=== PATIENT | male | born 1970 | race Caucasian/White ===

== ENCOUNTER 2016-11-30 15:31 | Emergency (ER) | payer OTHER ==
--- NOTE | 2016-11-30 17:28 | UC ---
Minor Trauma HPI - HPI Summary HPI Summary: Pt states he fell 10 feet from his roof at 9am today while trying to shovel snow off the roof. States he fell off such that his right elbow hit the daugherty of his brother's car (left a dent) and then landed on both feet, then twisted and fell backwards and landed on his buttocks in the snow. Denies head injury. No LOC. Denies neck pain, back pain and right elbow pain. Only complaint is left ankle pain, which only hurts if he twists it or walks and twists it. States he walked into the house after the fall on his own, and laid on the couch for a while after it happened and then came in for care when he noted the swelling of his left lateral malleolus. No vomiting. No abd pain, chest pain or SOB. Did not take any meds for pain. Has chronic back pain, but no meds currently, was on what sounds like a non steroidal prescription medication which helped, but pt states he hasn't needed it for 3 weeks. 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 He declines pain medication at this time. - History of Current Complaint Chief Complaint: UCLowerExtremity Stated Complaint: LEFT ANKLE INJURY Time Seen by Provider: 11/30/16 16:34 Hx Obtained From: Patient Onset/Duration: Sudden Onset, Lasting Hours, Still Present Onset Of Pain: Post Accident Severity Initially: Moderate Severity Currently: Moderate Pain Intensity: 7 Pain Scale Used: 0-10 Numeric Mechanism Of Injury: Fall From Height Of: - 10 feet Aggravating Factor(s): Other: - twisting Alleviating Factor(s): Nothing Associated Signs And Symptoms: Positive: Swelling - lat malleolus. 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 Alcohol Use: None Substance Use Type: None Smoking Status (MU): Heavy Every Day Tobacco Smoker Type: Cigarettes Amount Used/How Often: 1 PPD FOR 28 YRS Length of Time of Smoking/Using Tobacco: 28 YRS Have You Smoked in the Last Year: Yes Household Exposure Type: Cigarettes Review of Systems Constitutional: Negative Skin: Negative Eyes: Negative Respiratory: Negative Cardiovascular: Negative Gastrointestinal: Negative Motor: Negative Neurovascular: Negative Musculoskeletal: Other: - swelling left lat malleolus Neurological: Negative Psychological: Negative All Other Systems Reviewed And Are Negative: Yes Physical Exam Triage Information Reviewed: Yes Appearance: Well-Appearing, Well-Nourished, Pain Distress Vital Signs: Initial Vital Signs Temp 98.0 F 11/30/16 16:23 Pulse 69 11/30/16 16:23 Resp 16 11/30/16 16:23 BP 130/69 11/30/16 16:23 Pulse Ox 99 11/30/16 16:23 Vital Signs Reviewed: Yes Eyes: Positive: Conjunctiva Clear ENT: Positive: Hearing grossly normal, Pharynx normal, TMs normal, Other: - No Olivo's sign. Negative: Muffled/hoarse voice Dental Exam: Normal Neck: Positive: Supple, Nontender, No Lymphadenopathy Respiratory: Positive: Chest non-tender, Lungs clear, Normal breath sounds, No respiratory distress Cardiovascular: Positive: RRR, No Murmur, Pulses Normal, Brisk Capillary Refill Abdomen Description: Positive: Nontender, No Organomegaly, Soft. Negative: CVA Tenderness (R), CVA Tenderness (L), Distended, Guarding, Hernia @, Hepatomegaly , McBurney's Point Tenderness, Peritoneal Signs, Pulsatile Mass, Splenomegaly Bowel Sounds: Positive: Present Musculoskeletal: Positive: Strength Intact, ROM Intact, Other: - right elbow with no bony tenderness, deformity or ecchymosis or swelling. Left ankle with swelling lat malleolus. tender lat malleolus. Pulses, sensation intact. No prox tib fib tenderness bilat. Achilles tendons intact bilat by Nova test done with pt in kneeling position. No tenderness of Achilles by palpation. No spinal tenderness. Neurological: Positive: Alert, Muscle Tone Normal, Other: - CN 2-12 intact. Motor 5/5 Sensation intact. reflexes 2+, normal gait Psychological Exam: Normal Skin Exam: Normal Re-Evaluation - Re-Evaluation First Eval Re-Evaluation Time: 18:10 - back from xray, no change in condition, still declines pain med Change: Unchanged Second Eval Re-Evaluation Time: 19:00 Change: Unchanged - discussed xray finding with and pt, including back xray , and advised to go to ER if worse, and to have definite f/u with Dr. Woodruff on 12/02/16 Minor Trauma Course/Dx - Course Course Of Treatment: Pt meets trauma criteria. Discussed with pt. States he does not want to go to ED. Based on exam, ankle is not painful unless twisted, so do not feel pt has a distracting painful injury. Pt has no cervical, thoracic or lumbar spinal tenderness, no signs of head trauma or hx or exam findings of concussion. Will check lumbar spine film and heel film based on the trauma criteria, in addition to the ankle xray. Will no xray his right elbow as it has full ROM, no sign of trauma and no bony tenderness. Xray reports show no fxs. Ls spine, left heel and left ankle. Ls spine shows Grade 1 spondylolisthesis of L5 on S1 with likely spondylolysis of L5. Pt and voice understanding of trauma criteria and will go to the ER if any new or worsening symptoms. - Differential Dx/Diagnosis Differential Diagnosis/HQI/PQRI: Contusion(s), Fracture, Sprain, Strain Provider Diagnoses: fall from height of ten feet with left ankle sprain. spondylolisthesis of L5 on S1 with likely spondylolysis of L5. Discharge - Discharge Plan Condition: Stable Disposition: HOME Patient Education Materials: Ankle Sprain (ED), Crutch Instructions (ED) Referrals: Rodney Woodruff MD [Medical Doctor] - (definite 12/02/16 ) Non Staff,Doctor [Primary Care Provider] -
[2016-11-30 18:25] VITALS: BP 110/73
--- NOTE | 2016-11-30 18:26 | RAD ---
Indication: Fall. Lateral malleolus swelling. 3 views of the ankle demonstrates no fracture. Soft tissue swelling is noted laterally. IMPRESSION: Soft tissue swelling without fracture.
--- NOTE | 2016-11-30 18:27 | RAD ---
Indication: Fall with left heel swelling. 4 views of the left calcaneus demonstrates no fracture. No other bone or joint abnormality is noted. IMPRESSION: No fracture of the calcaneus is noted.
--- NOTE | 2016-11-30 18:30 | RAD ---
Indication: Back pain. Fall, back injury. 5 views of the lumbar spine reviewed. There is grade 1 spondylolisthesis of L5 on S1 with bilateral facet defects likely due to spondylolysis age of which is undetermined. No compression fracture is noted. Disc spaces all well-preserved. Intervertebral foramen appear patent. IMPRESSION: Grade 1 spondylolisthesis of L5 on S1 with likely spondylolysis of L5. No compression fracture is noted.
== END 2016-11-30 19:08 | disposition home or self-care (01) ==
LOC: UCCORT 15:31
DX: S93.402A Sprain of unspecified ligament of left ankle, initial encounter (principal); W13.2XXA Fall from, out of or through roof, initial encounter; Y93.H1 Activity, digging, shoveling and raking; Y92.008 Other place in unspecified non-institutional (private) residence as the place of occurrence of the external cause; M43.16 Spondylolisthesis, lumbar region; F17.210 Nicotine dependence, cigarettes, uncomplicated
CPT/HCPCS: 72110; 99213; G0463

== ENCOUNTER 2016-12-26 16:49 | Emergency (ER) | payer OTHER ==
[2016-12-26 18:26] VITALS: BP 117/70
--- NOTE | 2016-12-26 18:54 | UC ---
Throat Pain/Nasal Reji HPI - HPI Summary HPI Summary: PRODUCTIVE COUGH AND SINUS PRESSURE FOR FIVE DAYS. WORSE SINCE LAST NIGHT - History of Current Complaint Chief Complaint: UCGeneralIllness Stated Complaint: COUGH Time Seen by Provider: 12/26/16 18:35 Hx Obtained From: Patient Onset/Duration: Gradual Onset, Lasting Days, Still Present, Worse Since - LAST NIGHT Severity: Moderate Cough: Productive Associated Signs & Symptoms: Positive: Hoarseness, Sinus Discomfort, Nasal Discharge - Epiglottits Risk Factors Epiglottis Risk Factors: Negative - Allergies/Home Medications Allergies/Adverse Reactions: Allergies Allergy/AdvReac Type Severity Reaction Status Date / Time No Known Allergies Allergy Verified 12/26/16 18:26 PMH/Surg Hx/FS Hx/Imm Hx Previously Healthy: Yes Cardiovascular History Of: Reports: Cardiac Disorders - heart murmur resolved, CP - Surgical History Surgical History: Yes Surgery Procedure, Year, and Place: 20 YRS AGO CHEST TUBE FOR RIGHT LUNG REINFLATION-[facility] - Family History Known Family History: Positive: Cardiac Disease - Social History Occupation: Employed Full-time Lives: With Family Alcohol Use: None Substance Use Type: None Smoking Status (MU): Heavy Every Day Tobacco Smoker Type: Cigarettes Amount Used/How Often: 1 PPD FOR 28 YRS Length of Time of Smoking/Using Tobacco: 28 YRS Have You Smoked in the Last Year: Yes Household Exposure Type: Cigarettes Cessation Counseling: Counseled 3+Min - 10 Min Review of Systems Constitutional: Chills, Fatigue Skin: Negative Eyes: Negative ENT: Nasal Discharge Respiratory: Cough Cardiovascular: Negative Gastrointestinal: Negative Genitourinary: Negative Motor: Negative Neurovascular: Negative Musculoskeletal: Negative Neurological: Negative Psychological: Negative All Other Systems Reviewed And Are Negative: Yes Physical Exam Triage Information Reviewed: Yes Appearance: No Pain Distress, Well-Nourished, Ill-Appearing - MILD Vital Signs: Initial Vital Signs Temp 99.5 F 12/26/16 18:21 Pulse 71 12/26/16 18:21 Resp 16 12/26/16 18:21 BP 117/70 12/26/16 18:21 Pulse Ox 98 12/26/16 18:21 Vital Signs Reviewed: Yes Eye Exam: Normal ENT: Positive: Hearing grossly normal, Pharynx normal, Nasal congestion, TM bulging, TM dull Dental Exam: Normal Neck exam: Normal Neck: Positive: Supple, Nontender, No Lymphadenopathy Respiratory Exam: Normal Respiratory: Positive: Chest non-tender, Lungs clear, Normal breath sounds, No respiratory distress, No accessory muscle use Cardiovascular Exam: Normal Cardiovascular: Positive: RRR, No Murmur, Pulses Normal Abdominal Exam: Normal Abdomen Description: Positive: Nontender, No Organomegaly Musculoskeletal Exam: Normal Musculoskeletal: Positive: Strength Intact Neurological Exam: Normal Psychological Exam: Normal Psychological: Positive: Normal Response To Family Skin Exam: Normal Throat Pain/Nasal Course/Dx - Differential Dx/Diagnosis Differential Diagnosis/HQI/PQRI: Pharyngitis, Sinusitis, URI Provider Diagnoses: SINUSITIS. BRONCHITIS Discharge - Discharge Plan Condition: Stable Disposition: HOME Prescriptions: Benzonatate CAP* [Tessalon 100 MG CAP*] 100 mg PO TID PRN #15 cap PRN Reason: Cough DOXYcycline CAP(*) [DOXYcycline 100MG CAP(*)] 100 mg PO BID #20 cap Patient Education Materials: How to Stop Smoking (ED), Sinusitis (ED), Acute Bronchitis (ED) [place] [facility] [facility] [place] [facility] [place]] Non Staff,Doctor [Primary Care Provider] -
== END 2016-12-26 18:54 | disposition home or self-care (01) ==
LOC: UCCORT 16:49
DX: J32.9 Chronic sinusitis, unspecified (principal); J40 Bronchitis, not specified as acute or chronic; F17.210 Nicotine dependence, cigarettes, uncomplicated; Z71.6 Tobacco abuse counseling
CPT/HCPCS: 99212; G0463

== ENCOUNTER 2017-08-18 08:00 | Emergency (ER) | payer OTHER ==
[2017-08-18 08:14] VITALS: BP 127/78
--- NOTE | 2017-08-18 08:25 | UC ---
Shoulder Pain HPI - HPI Summary HPI Summary: 1. RIGHT SHOULDER PAIN X 2 WEEKS ? INJURY HE WAS HELPING A FRIEND RODDY , PAIN IS AT RIGHT TRAPEZES AND RADIATES TO HIS RIGHT BICEP NO WEAKNESS 2. RIGHT HEAR DISCOMFORT, FEELS PLUGGED FOR THE PAST 3 WEEKS, NO EAR PAIN , WENT SWIMMING 3 WEEKS AGO - History of Current Complaint Chief Complaint: UCUpperExtremity Stated Complaint: RIGHT SHOULDER/ELBOW INJURY Time Seen by Provider: 08/18/17 08:16 Hx Obtained From: Patient Onset/Duration: Gradual Onset, Lasting Weeks - 2, Still Present Timing: Constant Severity Initially: Moderate Severity Currently: Moderate Location Of Pain: Is Discrete @ - RIGHT SHOULDER Character: Aching Aggravating Factor(s): Movement, Lifting, Flexion Alleviating Factor(s): Nothing Associated Signs And Symptoms: Positive: Numbness/Tingling - RIGHT ARM. Negative: Swelling, Redness, Fever, Weakness - Allergies/Home Medications Allergies/Adverse Reactions: Allergies Allergy/AdvReac Type Severity Reaction Status Date / Time No Known Allergies Allergy Verified 08/18/17 08:08 Home Medications: Home Medications Acetaminophen [Tylenol] 650 mg PO ONCE PRN 08/18/17 [History Confirmed 08/18/17] PMH/Surg Hx/FS Hx/Imm Hx Previously Healthy: Yes - Surgical History Surgical History: Yes Surgery Procedure, Year, and Place: 25 YRS AGO CHEST TUBE FOR RIGHT LUNG REINFLATION[place] – [place] - Family History Known Family History: Positive: Cardiac Disease - Social History Alcohol Use: None Substance Use Type: None Smoking Status (MU): Heavy Every Day Tobacco Smoker Type: Cigarettes Amount Used/How Often: 1 PPD FOR 28 YRS Length of Time of Smoking/Using Tobacco: 28 YRS Have You Smoked in the Last Year: Yes Household Exposure Type: Cigarettes Review of Systems Constitutional: Negative Skin: Negative Eyes: Negative ENT: Negative Respiratory: Negative Cardiovascular: Negative Gastrointestinal: Negative Is Patient Immunocompromised?: No All Other Systems Reviewed And Are Negative: Yes Physical Exam Triage Information Reviewed: Yes Appearance: Well-Appearing, No Pain Distress, Well-Nourished Vital Signs: Initial Vital Signs Temp 98 F 08/18/17 08:09 Pulse 64 08/18/17 08:09 Resp 20 08/18/17 08:09 BP 127/78 08/18/17 08:09 Eye Exam: Normal Eyes: Positive: Conjunctiva Clear ENT: Positive: Other - BILATERAL CERUMEN IMPACTION RIGHT MORE THAN LEFT Neck exam: Normal Neck: Positive: Supple, Nontender, No Lymphadenopathy Respiratory: Positive: Chest non-tender, Lungs clear, Normal breath sounds, No respiratory distress Cardiovascular: Positive: RRR, No Murmur, Pulses Normal Musculoskeletal: Positive: Other: - RIGHT SHOULDER : NO SWELLING , NO ERYTHEMA, NO TENDERNESS, GOOD ROM ON FLEXION AND EXTENION , NORMAL STRENGTH Shoulder Course/Dx - Differential Dx/Diagnosis Provider Diagnoses: THORACIC OUTLET SYNDROME LEFT SHOULDER. CERUMEN IMPACTION Discharge - Discharge Plan Condition: Stable Disposition: HOME Patient Education Materials: Cerumen Impaction (ED), Thoracic Outlet Syndrome ( ED) Referrals: Non Staff,Doctor [Primary Care Provider] - 2 Weeks
== END 2017-08-18 09:01 | disposition home or self-care (01) ==
LOC: UCCORT 08:00
DX: G54.0 Brachial plexus disorders (principal); H61.23 Impacted cerumen, bilateral; F17.210 Nicotine dependence, cigarettes, uncomplicated
CPT/HCPCS: 99213; G0463

== ENCOUNTER 2017-11-05 09:02 | Emergency (ER) | payer OTHER ==
[2017-11-05 10:32] VITALS: BP 127/71
--- NOTE | 2017-11-05 11:01 | UC ---
FLU HPI - HPI Summary HPI Summary: 5 days of cough, chills and influenzalike illness. he smokes. he denies hemoptysis and cough is dry. - History of Current Complaint Chief Complaint: UCGeneralIllness Stated Complaint: COUGH/GARDNER/FATIGUE Time Seen by Provider: 11/05/17 10:48 Hx Obtained From: Patient Onset/Duration: Gradual Onset, Lasting Days, Still Present Severity Currently: Moderate Severity Initially: Moderate Pain Intensity: 2 Associated Signs & Symptoms: Positive: Cough, Nasal Congestion - Allergy/Home Medications Allergies/Adverse Reactions: Allergies Allergy/AdvReac Type Severity Reaction Status Date / Time No Known Allergies Allergy Verified 11/05/17 10:29 PMH/Surg Hx/FS Hx/Imm Hx Previously Healthy: No - smoker. - Surgical History Surgical History: Yes Surgery Procedure, Year, and Place: 25 YRS AGO CHEST TUBE [place]G [place] [place] - Family History Known Family History: Positive: Cardiac Disease - Social History Occupation: Employed Full-time Lives: With Family Alcohol Use: None Substance Use Type: None Smoking Status (MU): Heavy Every Day Tobacco Smoker Type: Cigarettes Amount Used/How Often: 1 PPD FOR 28 YRS Length of Time of Smoking/Using Tobacco: 28 YRS Have You Smoked in the Last Year: Yes Household Exposure Type: Cigarettes Review of Systems Constitutional: Chills Respiratory: Cough All Other Systems Reviewed And Are Negative: Yes Physical Exam Triage Information Reviewed: Yes Appearance: Well-Appearing, No Pain Distress, Well-Nourished Vital Signs: Initial Vital Signs Temp 99.5 F 11/05/17 10:25 Pulse 78 11/05/17 10:25 Resp 18 11/05/17 10:25 BP 127/71 11/05/17 10:25 Pulse Ox 98 11/05/17 10:25 Vital Signs Reviewed: Yes Eye Exam: Normal Eyes: Positive: Conjunctiva Clear ENT: Positive: Pharynx normal, Nasal congestion, TMs normal, Uvula midline. Negative: TM bulging, TM dull, TM red, Tonsillar swelling, Tonsillar exudate, Trismus, Muffled voice, Sinus tenderness Neck: Positive: Supple, Nontender. Negative: No Lymphadenopathy Respiratory: Positive: Lungs clear, Normal breath sounds, No respiratory distress, No accessory muscle use. Negative: Respiratory distress, Decreased breath sounds, Accessory muscle use, Crackles, Rhonchi, Stridor, Wheezing Cardiovascular: Positive: No Murmur, Pulses Normal, Brisk Capillary Refill Abdomen Description: Positive: No Organomegaly, Soft. Negative: Distended, Guarding Musculoskeletal: Positive: Strength Intact, ROM Intact. Negative: No Edema Neurological: Positive: Alert, Muscle Tone Normal. Negative: Fatigued Psychological: Positive: Age Appropriate Behavior Skin: Negative: rashes Flu Course/Dx - Course Course Of Treatment: No clinical signs of pnuemonia. Cough is dry and hacking. Ella su and tuyet banuelos. - Differential Dx/Diagnosis Provider Diagnoses: influenza. Discharge - Discharge Plan Condition: Good Disposition: HOME Prescriptions: Benzonatate CAP* [Tessalon 100 MG CAP*] 100 mg PO TID #21 cap Patient Education Materials: Influenza (ED) Referrals: Non Staff,Doctor [Primary Care Provider] -
== END 2017-11-05 11:09 | disposition home or self-care (01) ==
LOC: UCCORT 09:02
DX: J11.1 Influenza due to unidentified influenza virus with other respiratory manifestations (principal); F17.210 Nicotine dependence, cigarettes, uncomplicated
CPT/HCPCS: 87502; 99212; G0463

== ENCOUNTER 2018-01-17 08:21 | Emergency (ER) | payer OTHER ==
[2018-01-17 08:33] VITALS: BP 129/79
--- NOTE | 2018-01-17 08:43 | UC ---
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 Sleeping is very difficult. " sx started 3 days ago. pain is in mid low back with radiation slightly b/l. hurts when he twists, he was twisting a lifting a lot on day of injury. no radiation down legs. denies b/b incontinence. no saddle anesthesia. - History of Current Complaint Chief Complaint: UCBackPain Stated Complaint: BACK INJURY Time Seen by Provider: 01/17/18 08:30 Pain Intensity: 4 - Allergies/Home Medications Allergies/Adverse Reactions: Allergies Allergy/AdvReac Type Severity Reaction Status Date / Time No Known Allergies Allergy Verified 01/17/18 08:34 PMH/Surg Hx/FS Hx/Imm Hx Previously Healthy: Yes - Surgical History Surgical History: Yes Surgery Procedure, Year, and Place: 25 YRS AGO CHEST TUBE FOR RIGHT LUNG REINFLATION-[facility] - Family History Known Family History: Positive: Cardiac Disease - Social History Alcohol Use: None Substance Use Type: None Smoking Status (MU): Heavy Every Day Tobacco Smoker Type: Cigarettes Amount Used/How Often: 1 PPD FOR 28 YRS Length of Time of Smoking/Using Tobacco: 28 YRS Have You Smoked in the Last Year: Yes Household Exposure Type: Cigarettes Review of Systems Constitutional: Negative Skin: Negative Eyes: Negative ENT: Negative Respiratory: Negative Cardiovascular: Negative Gastrointestinal: Negative Genitourinary: Negative Motor: Decreased ROM Neurovascular: Negative Musculoskeletal: Negative Neurological: Negative Psychological: Negative Is Patient Immunocompromised?: No All Other Systems Reviewed And Are Negative: Yes Physical Exam Triage Information Reviewed: Yes Appearance: Well-Appearing - very pleasant, No Pain Distress, Well-Nourished - ambulates through hallway without any distress Vital Signs: Initial Vital Signs Temp 98.4 F 01/17/18 08:28 Pulse 75 01/17/18 08:28 Resp 18 01/17/18 08:28 BP 129/79 01/17/18 08:28 Pulse Ox 97 01/17/18 08:28 Vital Signs Reviewed: Yes Eye Exam: Normal ENT Exam: Normal Neck exam: Normal Cardiovascular: Positive: RRR, No Murmur Abdomen Description: Positive: Nontender, Soft Musculoskeletal Exam: Normal Musculoskeletal: Positive: Strength Intact, ROM Intact, Other: - L/s spine - NT , FROm w/ flexion and extension. mild pain w/ b/l rotation, but still FROM. Neg SLR b/l. + 2 patellar and achilles b/l. + b/l low paraspinal muscle spams that reporduce tenderness on palpation. Neurological Exam: Normal Psychological Exam: Normal Skin Exam: Normal Back Pain Course/Dx - Course Course Of Treatment: low back muscle strain. unlikely to have sciatica as there is no radiation or red flag sx. -no indication for imaging at this time w/o radiation or trauma sx w/ 3 days of sx. - Differential Dx/Diagnosis Differential Diagnosis/HQI/PQRI: Cauda Equina Syndrome, Compressive Cord Syndrome, Strain, Sprain Provider Diagnoses: Low back muscle strain Discharge - Sign-Out/Discharge Documenting (check all that apply): Discharge/Admit/Transfer - Discharge Plan Condition: Stable Disposition: HOME Prescriptions: Cyclobenzaprine (NF) [Cyclobenzaprine 5 MG (NF)] 5 mg PO DAILY PRN #7 tab PRN Reason: Pain Ibuprofen [Ibu] 800 mg PO TID PRN #21 tablet PRN Reason: Pain Patient Education Materials: Low Back Strain (ED), Lower Back Exercises (ED) Referrals: No Primary Care Phys,NOPCP [Primary Care Provider] - [facility] [Provider Group] Additional Instructions: -Continue using the ice and try to rest it and avoid twisting -You should be seen in 7-10 days with PCP if not better, list has been added above -Do not use the cyclobenzaprine if you will be driving or operating machinery within 8-10 hrs. -Do not take more than the recommended amount of any medicine, especially aleve as it can be damaging to your kidneys regardless of your body weight. - Billing Disposition and Condition Condition: STABLE Disposition: HOME
== END 2018-01-17 08:55 | disposition home or self-care (01) ==
LOC: UCCORT 08:21
DX: S39.012A Strain of muscle, fascia and tendon of lower back, initial encounter (principal); X50.0XXA Overexertion from strenuous movement or load, initial encounter; Y93.89 Activity, other specified; Y92.9 Unspecified place or not applicable; F17.210 Nicotine dependence, cigarettes, uncomplicated
CPT/HCPCS: 99212; G0463

== ENCOUNTER 2018-09-08 13:59 | Emergency (ER) | payer OTHER ==
[2018-09-08 14:24] VITALS: BP 112/74
--- NOTE | 2018-09-08 14:41 | UC ---
Throat Pain/Nasal Reji HPI - HPI Summary HPI Summary: sore throat x 1 day + fever, chills, cough body aches, - History of Current Complaint Chief Complaint: UCRespiratory Stated Complaint: RUNNY NOSE,SORE THROAT,HEADACHE,ACHY Time Seen by Provider: 09/08/18 14:09 Hx Obtained From: Patient Onset/Duration: Gradual Onset, Lasting Days - 1, Still Present Severity: Moderate Pain Intensity: 3 Cough: Nonproductive Associated Signs & Symptoms: Positive: Fever. Negative: Hoarseness, Sinus Discomfort, Nasal Discharge, Rash - Allergies/Home Medications Allergies/Adverse Reactions: Allergies Allergy/AdvReac Type Severity Reaction Status Date / Time No Known Allergies Allergy Verified 09/08/18 14:20 PMH/Surg Hx/FS Hx/Imm Hx Previously Healthy: Yes - Surgical History Surgical History: Yes Surgery Procedure, Year, and Place: 25 YRS AGO CHEST TUBE FOR RIGHT LUNG REINFLATION[place] – [place] - Family History Known Family History: Positive: Cardiac Disease - Social History Alcohol Use: None Substance Use Type: None Smoking Status (MU): Heavy Every Day Tobacco Smoker Type: Cigarettes Amount Used/How Often: 1 PPD FOR 28 YRS Length of Time of Smoking/Using Tobacco: 28 YRS Have You Smoked in the Last Year: Yes Household Exposure Type: Cigarettes Review of Systems All Other Systems Reviewed And Are Negative: Yes Constitutional: Positive: Fever, Chills, Fatigue Skin: Positive: Negative Eyes: Positive: Negative ENT: Positive: Sore Throat, Nasal Discharge Respiratory: Positive: Cough Cardiovascular: Positive: Negative Gastrointestinal: Positive: Negative Is Patient Immunocompromised?: No Physical Exam Triage Information Reviewed: Yes Appearance: Well-Appearing, No Pain Distress, Well-Nourished Vital Signs: Initial Vital Signs Temp 101.4 F 09/08/18 14:21 Pulse 102 09/08/18 14:21 Resp 17 09/08/18 14:21 BP 112/74 09/08/18 14:21 Pulse Ox 100 09/08/18 14:21 Vital Signs Reviewed: Yes Eye Exam: Normal Eyes: Positive: Conjunctiva Clear ENT: Positive: Normal ENT inspection, Hearing grossly normal, Nasal congestion, TMs normal. Negative: Pharynx normal, Pharyngeal erythema, TM bulging, TM dull , TM red, Tonsillar swelling, Tonsillar exudate Neck: Positive: Supple, Nontender, No Lymphadenopathy Respiratory: Positive: Chest non-tender, Lungs clear, Normal breath sounds, No respiratory distress Cardiovascular: Positive: Tachycardia Skin Exam: Normal Throat Pain/Nasal Course/Dx - Differential Dx/Diagnosis Provider Diagnosis: Influenza Discharge - Sign-Out/Discharge Documenting (check all that apply): Patient Departure All imaging exams completed and their final reports reviewed: No Studies - Discharge Plan Condition: Stable Disposition: HOME Prescriptions: Oseltamivir CAP* [Tamiflu CAP*] 75 mg PO BID #10 cap Patient Education Materials: Influenza (DC) Referrals: No Primary Care Phys,NOPCP [Primary Care Provider] - If Needed - Billing Disposition and Condition Condition: STABLE Disposition: Home
[2018-09-08] MEDS ORDERED: Oseltamivir CAP* 75 MG CAP PO ONE (14:53)
== END 2018-09-08 15:02 | disposition home or self-care (01) ==
LOC: UCCORT 13:59
DX: J09.X2 Influenza due to identified novel influenza A virus with other respiratory manifestations (principal); F17.210 Nicotine dependence, cigarettes, uncomplicated
CPT/HCPCS: 99212; A9270-GY; G0463

== ENCOUNTER 2018-12-26 18:41 | Emergency (ER) | payer OTHER ==
[2018-12-26 19:08] VITALS: BP 125/79
--- NOTE | 2018-12-26 19:16 | UC ---
Lower Extremity/Ankle HPI - HPI Summary HPI Summary: Stubbed pinky toe, right foot, earlier this week. Pain with walking. Progressive redness and swelling the last several days. - History of Current Complaint Chief Complaint: UCLowerExtremity Stated Complaint: RT PINKY TOE INJ Hx Obtained From: Patient Onset/Duration: Sudden Onset, Lasting Days - 5, Worse Since - last 2 days Severity Initially: Moderate Severity Currently: Mild Pain Intensity: 3 Aggravating Factor(s): Standing, Ambulation Alleviating Factor(s): Rest Able to Bear Weight: Yes - Allergies/Home Medications Allergies/Adverse Reactions: Allergies Allergy/AdvReac Type Severity Reaction Status Date / Time No Known Allergies Allergy Verified 12/26/18 19:05 PMH/Surg Hx/FS Hx/Imm Hx Previously Healthy: Yes Other Respiratory History: Pneumothorax - Surgical History Surgical History: Yes Surgery Procedure, Year, and Place: 25 YRS AGO CHEST TUBE FOR RIGHT LUNG REINFLATION-[facility]. gallbladder - Family History Known Family History: Positive: Cardiac Disease - Social History Occupation: Employed Full-time Lives: With Family Alcohol Use: None Substance Use Type: None Smoking Status (MU): Heavy Every Day Tobacco Smoker Type: Cigarettes Amount Used/How Often: 1 PPD FOR 28 YRS Length of Time of Smoking/Using Tobacco: 28 YRS Have You Smoked in the Last Year: Yes Household Exposure Type: Cigarettes Review of Systems All Other Systems Reviewed And Are Negative: Yes Skin: Positive: Bruising - right 5th toe Musculoskeletal: Positive: Arthralgia - right 5th toe Is Patient Immunocompromised?: No Physical Exam Triage Information Reviewed: Yes Appearance: Well-Appearing, Well-Nourished, Pain Distress - mild, worse with ambulation Vital Signs: Initial Vital Signs Temp 98.8 F 12/26/18 19:05 Pulse 88 12/26/18 19:05 Resp 16 12/26/18 19:05 BP 125/79 12/26/18 19:05 Pulse Ox 96 12/26/18 19:05 Vital Signs Reviewed: Yes Eyes: Positive: Conjunctiva Clear Neck exam: Normal Respiratory Exam: Normal Cardiovascular Exam: Normal Musculoskeletal: Positive: ROM Intact - right fifth MTP, ROM Limited @ - right 5th IP joint Neurological Exam: Normal Psychological Exam: Normal Skin: Positive: Other - swelling, redness and warmth over the right 5th toe Diagnostics - Radiology No standard instances Radiology Interpretation Completed By: ED Physician Summary of Radiographic Findings: Mildly displaced distal right 5th proximal toe phalynx oblique fracture Lower Extremity Course/Dx - Differential Dx/Diagnosis Differential Diagnosis/HQI/PQRI: Cellulitis, Dislocation, Fracture (Closed), Osteomyelitis Provider Diagnosis: Cellulitis of right toe, Closed displaced fracture of proximal phalanx of lesser toe of right foot Discharge - Sign-Out/Discharge Documenting (check all that apply): Patient Departure All imaging exams completed and their final reports reviewed: No - Discharge Plan Condition: Stable Disposition: HOME Prescriptions: Cephalexin CAP* [Keflex 500 CAP*] 500 mg PO QID #40 cap Patient Education Materials: Toe Fracture (ED), Cellulitis (ED), Cephalexin ( By mouth) Referrals: Sheridan Mcgee MD [Primary Care Provider] - - Billing Disposition and Condition Condition: STABLE Disposition: Home
[2018-12-26] MEDS ORDERED: Cephalexin CAP* 500 MG PO ONE ×2 (19:35→19:36)
--- NOTE | 2018-12-27 07:19 | UC ---
- Progress Note Progress Note: wet read correct Course/Dx - Diagnoses Provider Diagnoses: Cellulitis of right toe, Closed displaced fracture of proximal phalanx of lesser toe of right foot Discharge - Sign-Out/Discharge Documenting (check all that apply): Post-Discharge Follow Up All imaging exams completed and their final reports reviewed: Yes - Discharge Plan Condition: Stable Disposition: HOME Prescriptions: Cephalexin CAP* [Keflex 500 CAP*] 500 mg PO QID #40 cap Patient Education Materials: Cephalexin (By mouth), Toe Fracture (ED), Cellulitis (ED) Referrals: Sheridan Mcgee MD [Primary Care Provider] - - Billing Disposition and Condition Condition: STABLE Disposition: Home
== END 2018-12-26 19:51 | disposition home or self-care (01) ==
LOC: UCCORT 18:41
DX: S92.511A Displaced fracture of proximal phalanx of right lesser toe(s), initial encounter for closed fracture (principal); L03.031 Cellulitis of right toe; F17.210 Nicotine dependence, cigarettes, uncomplicated; X58.XXXA Exposure to other specified factors, initial encounter; Y92.9 Unspecified place or not applicable
CPT/HCPCS: 99213; A9270-GY; G0463

== ENCOUNTER 2019-01-04 11:13 | Emergency (ER) | payer OTHER ==
[2019-01-04 11:59] VITALS: BP 113/71
--- NOTE | 2019-01-04 12:54 | UC ---
Lower Extremity/Ankle HPI - HPI Summary HPI Summary: 48 -year-old male who sustained a fracture to his right fifth toe. It had been cathi taped at the time and he was started on cephalexin because there was some mild cellulitis present. He has taken about 8 days of cephalexin and has gotten diarrhea about 3-4 times a day and he is concerned about that. The right fifth toe remains swollen. He stated to me he never followed up with an orthopedist. He called his primary care doctor who sent him here today for recheck. The x-ray report from December 26, 2018 showed a mildly displaced fracture of the fifth toe. - History of Current Complaint Chief Complaint: UCGI Stated Complaint: DIARRHEA Time Seen by Provider: 01/04/19 12:00 Hx Obtained From: Patient Onset/Duration: Gradual Onset Severity Initially: Mild Severity Currently: Mild Pain Intensity: 2 Pain Scale Used: 0-10 Numeric Aggravating Factor(s): Nothing Alleviating Factor(s): Nothing Able to Bear Weight: Yes - patient states he does not feel much pain in the toe unless he is walking w - Allergies/Home Medications Allergies/Adverse Reactions: Allergies Allergy/AdvReac Type Severity Reaction Status Date / Time No Known Allergies Allergy Verified 01/04/19 11:57 Home Medications: Home Medications Bismuth Subsalicylate [Pepto-Bismol Max Strength] 525 mg PO ONCE 01/04/19 [ History Confirmed 01/04/19] PMH/Surg Hx/FS Hx/Imm Hx Previously Healthy: Yes - Surgical History Surgical History: Yes Surgery Procedure, Year, and Place: 25 YRS AGO CHEST TUBE FOR RIGHT LUNG REINFLATION-[facility]. gallbladder - Family History Known Family History: Positive: Cardiac Disease - Social History Alcohol Use: None Substance Use Type: None Smoking Status (MU): Heavy Every Day Tobacco Smoker Type: Cigarettes Amount Used/How Often: 1 PPD FOR 28 YRS Length of Time of Smoking/Using Tobacco: 28 YRS Have You Smoked in the Last Year: Yes Household Exposure Type: Cigarettes Review of Systems All Other Systems Reviewed And Are Negative: Yes Skin: Positive: Other - The right fifth toes still appears somewhat bruised with redness Gastrointestinal: Positive: Diarrhea - Diarrhea approximately 3-4 times a day since he has started the cephalexin. Motor: Positive: Other - Pain mostly when walking barefoot with flexion. Neurovascular: Positive: Negative - Denies any decreased sensation. Musculoskeletal: Positive: Other: - The x-ray from 12/26/2018 shows a mildly displaced fracture of the fifth toe. Today the patient does not have it cathi taped. He did not follow-up with an orthopedist. Neurological: Positive: Negative Is Patient Immunocompromised?: No Physical Exam Triage Information Reviewed: Yes Appearance: Well-Appearing, No Pain Distress, Well-Nourished Vital Signs: Initial Vital Signs Temp 98.6 F 01/04/19 11:54 Pulse 89 01/04/19 11:54 Resp 18 01/04/19 11:54 BP 113/71 01/04/19 11:54 Pulse Ox 97 01/04/19 11:54 Vital Signs Reviewed: Yes Musculoskeletal: Positive: Other: - Right fifth toe continues to be swollen however he has good peripheral pulses, neuro sensation and capillary refill. Right 5th toe is tender on palpation. No streaking. The toe is the normal temperature of the other toes and foot. No visible deformity is noted. Neurological: Positive: Alert, Muscle Tone Normal Psychological Exam: Normal Skin Exam: Normal - See notes above. Lower Extremity Course/Dx - Course Course Of Treatment: This patient did not follow-up with an orthopedist following his visit here for the fractured toe. He no longer has a cathi tape in place. We replaced the cathi tape. He refused a CAM boot stating he had he would not be able to work if he had that on. 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 We were able to make an appointment for him at the orthopedist, Dr. Mayo, tomorrow. He is to continue to elevate as much as possible. - Differential Dx/Diagnosis Provider Diagnosis: Fracture of toe of right foot Discharge - Sign-Out/Discharge Documenting (check all that apply): Patient Departure All imaging exams completed and their final reports reviewed: No Studies - Discharge Plan Condition: Fair Disposition: HOME Patient Education Materials: Toe Fracture (ED) Referrals: Sheridan Mcgee MD [Primary Care Provider] - Brian Mayo MD [Medical Doctor] - Additional Instructions: Elevate as much as possible. Definite follow up with Dr. Mayo (orthopedist) on Friday at 1:30 pm arrive about 10-15 minutes early. - Billing Disposition and Condition Condition: FAIR Disposition: Home - Attestation Statements Provider Attestation: I was available for consult. This patient was seen by the LAUREN. The patient was not presented to, seen by, or examined by me. -Teddy
== END 2019-01-04 12:34 | disposition home or self-care (01) ==
LOC: UCCORT 11:13
DX: S92.501D Displaced unspecified fracture of right lesser toe(s), subsequent encounter for fracture with routine healing (principal); L03.031 Cellulitis of right toe; R19.7 Diarrhea, unspecified; F17.210 Nicotine dependence, cigarettes, uncomplicated; X58.XXXD Exposure to other specified factors, subsequent encounter
CPT/HCPCS: 99212; G0463

== ENCOUNTER 2019-04-17 09:33 | Emergency (ER) | payer OTHER ==
[2019-04-17 10:46] VITALS: BP 132/68
--- NOTE | 2019-04-17 11:18 | UC ---
Skin Complaint HPI - HPI Summary HPI Summary: 48-year-old male presents with red, itchy rash to his chest for the past 1-1/2 weeks. States started after he had been working installing a new roof on a especially hot day. States rash has improved some since the onset however was concerned because it was persistent. Denies fever, chills, swelling of the lips , tongue, throat, dysphagia, difficulty breathing, changes in medications, diet , soaps, detergents, deodorants, or known contact with environmental irritants. - History of Current Complaint Chief Complaint: UCSkin Time Seen by Provider: 04/17/19 10:57 Stated Complaint: SKIN/CHEST/STOMACH COMPLAINT FOR 2 WEEKS Hx Obtained From: Patient Pain Intensity: 0 - Allergy/Home Medications Allergies/Adverse Reactions: Allergies Allergy/AdvReac Type Severity Reaction Status Date / Time No Known Allergies Allergy Verified 04/17/19 10:46 PMH/Surg Hx/FS Hx/Imm Hx Previously Healthy: Yes - Denies significant PMH - Surgical History Surgical History: Yes Surgery Procedure, Year, and Place: 25 YRS AGO CHEST TUBE FOR RIGHT LUNG REINFLATION-[facility]. gallbladder - Family History Known Family History: Positive: Cardiac Disease - Social History Occupation: Employed Full-time Lives: With Family Alcohol Use: Occasionally Substance Use Type: None Smoking Status (MU): Heavy Every Day Tobacco Smoker Type: Cigarettes Amount Used/How Often: 1 PPD Length of Time of Smoking/Using Tobacco: since age 16 Have You Smoked in the Last Year: Yes Household Exposure Type: Cigarettes Review of Systems All Other Systems Reviewed And Are Negative: Yes Constitutional: Negative: Fever, Chills Skin: Positive: Rash Respiratory: Positive: Negative Cardiovascular: Positive: Negative Gastrointestinal: Positive: Negative Genitourinary: Positive: Negative Musculoskeletal: Positive: Negative Neurological: Positive: Negative Is Patient Immunocompromised?: No Physical Exam - Summary Physical Exam Summary: GENERAL APPEARANCE: Well developed, well nourished, alert and cooperative, and appears to be in no acute distress. MOUTH/THROAT: No swelling of the lips or tonguue. Pharynx normal No tonsilar inflammation, swelling, exudate, or lesions. Uvula midline. Airway patent. CARDIAC: Normal S1 and S2. No S3, S4 or murmurs. Rhythm is regular. There is no peripheral edema, cyanosis or pallor. Extremities are warm and well perfused. Capillary refill is less than 2 seconds. Peripheral pulses intact. LUNGS: Clear to auscultation without rales, rhonchi, wheezing or diminished breath sounds. ABDOMEN: Positive bowel sounds. Soft, nondistended, nontender. No guarding or rebound. No masses or hepatosplenomegally. MUSKULOSKELETAL: ROM intact to all extremities. No joint erythema or tenderness. Normal muscular development. Normal gait. SKIN: Erythematous, confluent, maculopapular rash to the anterior chest. Triage Information Reviewed: Yes Vital Signs: Initial Vital Signs Temp 98.6 F 04/17/19 10:37 Pulse 66 04/17/19 10:37 Resp 18 04/17/19 10:37 BP 132/68 04/17/19 10:37 Pulse Ox 99 04/17/19 10:37 Vital Signs Reviewed: Yes Course/Dx - Course Course Of Treatment: 48-year-old male presents with red, itchy rash to his chest for the past 1-1/2 weeks. States started after he had been working installing a new roof on a especially hot day. States rash has improved some since the onset however was concerned because it was persistent. Denies fever, chills, swelling of the lips , tongue, throat, dysphagia, difficulty breathing, changes in medications, diet , soaps, detergents, deodorants, or known contact with environmental irritants. Afebrile. Vital signs stable. Patient had erythematous, confluent, maculopapular rash to the anterior chest and otherwise unremarkable exam. We' ll treat him for a contact dermatitis with clobetasol ointment twice a day until clear for up to 2 weeks. He is to follow-up with his primary care provider in 5-7 days if symptoms do not improve. Anticipatory guidance and warning symptoms were reviewed with the patient. Verbalizes understanding and agrees with plan of care. - Differential Diagnoses - Skin Complaint Differential Diagnoses: Allergic Reaction, Cellulitis, Drug Rash, Local Allergic Reaction, Poison Allie, Poison Cotati, Urticaria - Diagnoses Provider Diagnosis: Contact dermatitis Discharge - Sign-Out/Discharge Documenting (check all that apply): Patient Departure All imaging exams completed and their final reports reviewed: No Studies - Discharge Plan Condition: Stable Disposition: HOME Prescriptions: Clobetasol 0.05% OINT* 30 gm TOPICAL BID #1 tube Patient Education Materials: Contact Dermatitis (ED) Referrals: Sheridan Mcgee MD [Primary Care Provider] - 5 Days Additional Instructions: Your rash appears to be a contact dermatitis. Use clobetasol ointment. Apply a thin layer to the affected area twice daily. Be sure to clean and dry the skin before application. Do not use for more than 2 weeks. Follow-up with your primary care provider in 5-7 days if symptoms are not improving. Seek immediate medical attention in the emergency room if you have any swelling of the lips, tongue, throat, difficulty breathing, or any worsening of symptoms. - Billing Disposition and Condition Condition: STABLE Disposition: Home - Attestation Statements Provider Attestation: I was available for consult. This patient was seen by the LAUREN. The patient was not presented to , seen by or examined by sc -Dania Eng MD
== END 2019-04-17 11:39 | disposition home or self-care (01) ==
LOC: UCCORT 09:33
DX: L25.9 Unspecified contact dermatitis, unspecified cause (principal); F17.210 Nicotine dependence, cigarettes, uncomplicated
CPT/HCPCS: 99212; G0463